=== PATIENT | male | born 1965 | race Caucasian/White ===

== ENCOUNTER 2021-11-29 19:58 | Emergency (ER) | payer OTHER, SELFPAY ==
[2021-11-29 19:59] VITALS: BP 131/73; PULSE 73; RESP 16; TEMP 36.6; O2SAT 96; BMI 22.3
--- NOTE | 2021-11-29 20:16 | EKG12_ITS ---
Test Reason : BACK PAIN Blood Pressure : / mmHG Vent. Rate : 071 BPM Atrial Rate : 071 BPM P-R Int : 158 ms QRS Dur : 082 ms QT Int : 410 ms P-R-T Axes : 070 032 058 degrees QTc Int : 445 ms Normal sinus rhythm Normal ECG Confirmed by CHARU DODD, SOTO ([id number]), editorial specialist [facility] ([id number]) on 12/02/2021 12:52:39 PM Referred By: BUNNY Confirmed By:SOTO BOX MD
--- NOTE | 2021-11-29 20:18 | CT_ITS ---
STUDY: CT ABDOMEN AND PELVIS WITHOUT CONTRAST REASON FOR EXAM: Male, 56 years old. Low back pain, syncope RADIATION DOSAGE (If Supplied By Facility): CTDIvol = ( 6.25 ) mGy, DLP = ( 301.41 ) mGycm TECHNIQUE: Transaxial images were obtained from the dome of the diaphragm to the symphysis pubis without oral contrast, and without intravenous contrast. Sagittal and coronal images were reconstructed. Individualized dose optimization techniques were used for this CT. COMPARISON: None. FINDINGS: The visualized lung bases are unremarkable. The visualized portions of the heart are within normal limits. Normal liver. Normal gallbladder and extrahepatic biliary system. Normal spleen. Normal pancreas. Normal bilateral adrenal glands. Normal right kidney. Normal left kidney. Normal visualized stomach. Normal small intestine. Normal colon. The appendix is visualized and appears normal. Appendix seen on coronal recon images 58-65 There is diffuse atherosclerotic calcification of the abdominal aorta, without a demonstrated aneurysm. Normal inferior vena cava. Normal retroperitoneum. Normal urinary bladder. There are prostatic calcifications. Normal abdominal wall. There are mild degenerative changes of the visualized lumbar spine, and pelvis. CT/Abdomen/Pelvis without Cont IMPRESSION: No suspicious solid organ abnormality No free intraperitoneal fluid, air, or suspicious adenopathy Normal appendix visualized Mild degenerative bony changes, most pronounced at L4-5 Electronically Signed: Michi Mcgovern MD at 21:17 EST ,
--- NOTE | 2021-11-29 20:20 | EX.ED.DYSGE1 ---
HPI History of Present Illness Chief Complaint: Back Detail of Chief Complaint: Syncope Informant: patient and spouse/S.O. Narrative Narrative: Patient presents via EMS after syncopal episode. Patient states he remembers having increased back pain the last several days although he has been having back pain for approximately 10 years. He took ibuprofen at dinner around 5 PM. He took a nap on the couch. When he got up he went to the restroom and then went to the kitchen to get something to drink. Significant other states she heard a thud in the kitchen and when she went in he had passed out on the floor. She believes he was out for approximately 45 seconds to 1 minute. She then helped him to a chair where he had a second unresponsive episode. He did vomit and become sweaty after this. At that point she called EMS. Patient denies chest pain or palpitations. PFSH PFSH Medical History no medical history no medical history Home Medications lidocaine [Lidoderm] 1 patch TOPICAL DAILY #8 ea 11/29/21 [Rx Last Taken Unknown] Allergy/AdvReac Type Severity Reaction Status Date / Time No Known Allergies Allergy Verified 11/29/21 20:00 Surgical History no surgical history Social History Smoking Status: Current every day smoker tobacco type: cigarettes ROS ROS ED Constitutional Constitutional ED: Denies chills or fever(s) Eyes Eyes: Denies change in vision ENT ENT ED: Denies sore throat Cardiovascular Cardiovascular: Denies chest pain or palpitations Respiratory/Chest Respiratory/Chest: Denies cough or dyspnea Gastrointestinal Gastrointestinal: Denies abdominal pain, diarrhea, nausea or vomiting Musculoskeletal Musculoskeletal: Reports back pain Integumentary Denies rash Neurologic Neurologic: Denies headache(s), paresthesias or weakness Allergic/Immunologic Allergic/Immunologic ED: Denies urticaria EXAM Physical Exam Const Vital Signs: 11/29/21 19:59 11/29/21 22:07 Temperature 97.8 F Temperature Source Oral Pulse Rate 73 62 Respiratory Rate 16 20 H Blood Pressure 131/73 H 140/91 H Blood Pressure Mean 92 107 Pulse Ox 96 99 Oxygen Delivery Method Room Air Room Air Positive well nourished and well developed General Appearance ED: well developed HEENT Reports moist mucous membranes Eyes PERRL and EOMs intact bilaterally Neck no lymphadenopathy and supple Chest Wall inspection of chest normal and palpation of chest normal Resp normal respiratory effort and clear to auscultation bilaterally Cardio regular rate and regular rhythm GI normal to inspection, nondistended, normoactive bowel sounds and non-tender Palpation: soft Back/Spine Back/Spine Narrative: No reproducible back tenderness. No erythema or overlying skin change. Extremity normal to inspection Neuro oriented x3 and no sensory deficits noted Sensorium / Orientation: alert Motor Exam: strength 5/5 throughout Psych mental status grossly normal Skin no rashes or lesions noted MDM MDM MDM Narrative Medical decision making narrative: Patient declines anything for pain. Patient placed on graphics software engineer. EKG, chest x-ray, lab work obtained. CT scan of the abdomen pelvis obtained so I can evaluate both spine as well as aorta. Lab Data Attestation: I reviewed the patient's lab results. Labs: Laboratory Results - last 24 hr 11/29/21 11/29/21 20:35 20:35 WBC 7.1 RBC 4.35 L Hgb 13.9 Hct 41.5 MCV 95.4 H MCH 32.0 MCHC 33.5 RDW Std Deviation 45.6 H RDW Coeff of Michael 13.0 Plt Count 256 MPV 8.8 Immature Gran % (Auto) 0.300 Neut % (Auto) 52.1 Lymph % (Auto) 37.3 Camp % (Auto) 5.4 Eos % (Auto) 4.3 Baso % (Auto) 0.6 Absolute Neuts (auto) 3.7 Absolute Lymphs (auto) 2.63 Nucleated RBC % 0 Sodium 144 Potassium 3.5 Chloride 111 H Carbon Dioxide 27.0 Anion Gap 6 BUN 17 Creatinine 1.00 Estim Creat Clear Calc 85.83 Est GFR (MDRD) Af Amer 100 Est GFR (MDRD) Non-Af 82 BUN/Creatinine Ratio 17.0 Glucose 94 Calcium 8.6 Troponin I High Sens 5 Radiography Diagnostic Testing: Clinical Impression(s) from Imaging Studies Abdomen/Pelvis CT 11/29/21 20:18 IMPRESSION: No suspicious solid organ abnormality No free intraperitoneal fluid, air, or suspicious adenopathy Normal appendix visualized Mild degenerative bony changes, most pronounced at L4-5 Electronically Signed: Michi Mcgovern MD at 21:17 EST Reading Location ID and State: [facility] / [place] , Service support , Chest X-Ray 11/29/21 20:52 IMPRESSION: No radiographic evidence of acute cardiopulmonary disease. Electronically Signed: Madi Guzman MD at 21:45 EST , EKG Initial EKG: Attestation: I personally reviewed and interpreted this EKG as follows: Interpretation: Sinus Rhythm (Sinus at 71 with no acute ischemia.) Treatment and Re-Evaluation Comments:: On repeat evaluation patient resting comfortably. Test results discussed with him. We discussed possible observation overnight for monitoring of cardiac rhythm. He would prefer to go home. My suspicion is that he had a vasovagal syncope secondary to back pain. He is willing to take a Lidoderm patch for his back but does not want any oral medication. He will be referred to Dr. Harding, next on the no doc list. Discharge Plan Triage Chief Complaint: Back ED Provider: Veronica Moyer Dx/Rx/DC Orders Clinical Impression: Back pain, Vasovagal syncope Instructions: ED Back Pain (Acute or Chronic), ED Fainting, Vagal Reaction Prescriptions: New lidocaine [Lidoderm] 5 % adhesive patch,medicated 1 patch topical DAILY Qty: 8 RF: 0 Primary Care Provider: Care Physician,No Primary Referrals: Cheryle Harding MD [STAFF PHYSICIAN] - As soon as possible Care Physician,No Primary [Primary Care Provider] - Disposition Disposition: Home, Self Care
[2021-11-29] MEDS: 0.9% Normal Saline 1,000 ML 150 ML IV (20:38)
[2021-11-29 20:46] LABS: Absolute Lymphocyte Count 2.63 X10^3/uL (0.83-4.51); Absolute Neutrophil Count 3.7 X10^3/uL (2.0-7.7); Basophil# 0.04 X10^3/uL; Basophil% 0.6 % (0-1); Eosinophils% 4.3 % (0-5); Hematocrit 41.5 % (40-54); Hemoglobin 13.9 g/dL (13.0-16.5); Lymphocyte # 2.63 X10^3/ul (0.83-4.51); Lymphocyte % 37.3 % (19-41); Mean Corp Hgb Conc 33.5 g/dL (32-36); Mean Corpuscular Volume 95.4 fL (80-94); Mean Platelet Vol. 8.8 fl (6.2-12.0); Monocyte# 0.38 X10^3/uL; Monocyte% 5.4 % (0-10); NRBC Flagged by Analyzer 0 % (0-5); Neutrophil # 3.68 X10^3/uL (2.7-7.7); Neutrophil % 52.1 % (47-70); Platelet Count 256 K/mm3 (150-450); RBC Distribution Width SD 45.6 fl (35.1-43.9); Red Blood Count 4.35 M/mm3 (4.6-6.2); White Blood Count 7.1 K/mm3 (4.4-11.0)
--- NOTE | 2021-11-29 20:52 | RAD_ITS ---
EXAM: XR CHEST, 1 VIEW CLINICAL INDICATION: syncope TECHNIQUE: Frontal view of the chest. This report was created using [employer] report generation technology. COMPARISON: None. FINDINGS: LUNGS AND PLEURAL SPACES: Unremarkable. No consolidation or edema. No pneumothorax. No effusion. HEART: Unremarkable. Cardiac silhouette not enlarged. MEDIASTINUM: Central airways and mediastinal contour are unremarkable. BONES/JOINTS: No suspicious lytic or sclerotic lesions of bone. SOFT TISSUES: Unremarkable. RAD/Chest 1 View (Portable) IMPRESSION: No radiographic evidence of acute cardiopulmonary disease. Electronically Signed: Madi Guzman MD at 21:45 EST ,
[2021-11-29 21:18] LABS: Anion Gap 6 (5-15); BUN 17 mg/dL (7-18); Calcium,Total 8.6 mg/dL (8.5-10.1); Chloride 111 mmol/L (98-107); EST Glomerular Filtration Rate 82 mL/min (>60); Est Glom Filt Rate - Afr Amer 100 mL/min (>60); Estimated Creatinine Clearance 85.83 ml/min; Glucose 94 mg/dL (74-106); Potassium 3.5 mmol/L (3.5-5.1); Sodium Level 144 mmol/L (136-145); Troponin-I HS 5 pg/mL (3.0-78.0)
[2021-11-29 22:07] VITALS: BP 140/91; PULSE 62; RESP 20; O2SAT 99
[2021-11-29 22:46] VITALS: BP 140/91; PULSE 60; RESP 12; O2SAT 98
[2021-11-29] MEDS: Lidocaine 5% Patch 1 PATCH TOPICAL (22:53)
== END 2021-11-29 23:00 | disposition home or self-care (01) ==
PROVIDERS: Emergency Provider Emergency Medicine; Visit Provider Emergency Medicine
DX: M54.9 Dorsalgia, unspecified (principal); R55 Syncope and collapse; R11.10 Vomiting, unspecified; F17.210 Nicotine dependence, cigarettes, uncomplicated
CPT/HCPCS: 71045; 74176; 80048; 84484; 85025; 93005; 99284; J7030; A4216

== ENCOUNTER → 2025-04-19 | Outpatient (CLI) | payer OTHER, SELFPAY ==
--- NOTE | 2025-04-19 13:58 | CT_ITS ---
PROCEDURE: LOW DOSE CT LUNG SCREENING 04/19/2025 REASON FOR EXAM: H OF SMOKING 1 pack per day for 40 years. TECHNIQUE: LOW DOSE CT LUNG SCREENING Coronal and Sagittal reconstruction series were provided. One or more dose reduction techniques were used (e.g., Automated exposure control, adjustment of the mA and/or kV according to patient size, use of iterative reconstruction technique). REFERENCE LINK: [email or web address] Lung-RADS RADIATION DOSE SUMMARY: CTDlvol: 1.59 mGy DLP: 57.78 mGycm COMPARISON: Prior chest radiograph dated November 29, 2021. FINDINGS: PULMONARY NODULES: (Only nodules >3mm are reported) Nodules described below are on series 1 unless otherwise specified. Pulmonary Nodules: None Hardware:None Lymph Nodes:None Heart and Vasculature:The heart is nonenlarged. No evidence of pericardial effusion.. The ascending aorta measures upper limits of normal. Coronary Artery Calcifications: Present Lungs and Airways: Mild emphysematous changes are present. Tiny calcific granuloma in the right midlung. Pleura:No pleural effusion. Upper Abdomen:Unremarkable Bones:Unremarkable CT/Low Dose CT Lung Screening IMPRESSION: Mild emphysematous changes. Coronary artery calcification (CAC) is is present Lung-RADS Category: 2 BENIGN (BASED ON IMAGING FEATURES OR INDOLENT BEHAVIOR). RECOMMEND 12-MONTH SCREENING LDCT. Other Significant Findings: Reading Location: [place] [id number]
--- OUTSIDE RECORDS SUMMARY | 2025-04-19 17:42 | XMS RPT_ITS | CCD ---
Author Organization [facility] Care Team Providers Care Transport Engineer Name Role Phone FLORENCIA EDUARDO Unavailable Unavailable Unavailable Primary Care Provider Unavailabl e OHSIE-BAJOR, MASHA H Admitting Unavailable OHSIE-BAJOR, MASHA H Attending Unavailable OHSIE-BAJOR, MASHA H Admitting Unavailable OHSIE-BAJOR, MASHA H Attending Unavailable OHSIE-BAJOR, MASHA H Referring Unavailable OHSIE-BAJOR, MASHA H Attending Unavailable OHSIE-BAJOR, MASHA H Referring Unavailable OHSIE-BAJOR, MASHA H Attending Unavailable OHSIE-BAJOR, MASHA H Attending Unavailable OHSIE-BAJOR, MASHA H Attending Unavailable OHSIE-BAJOR, MASHA H Attending Unavailable Magana Drew Referring Unavailable [place], Drew Attending Unavailable Care Physician, No Primary Primary Care Unava ilable Medications Current Medications Medication Drug Class(es) Dates Sig (Normalized) Sig (Original) 2 ml droperidol 2.5 mg/ml injection (1 source) Dopamine-2 Receptor Antagonist Start: 08-28-2024 0.625 mg, intravenous, Once as needed, nausea/vomiting, second line, Starting on Tue08/28/24 at 1414, For 1 dose, Recovery (only), Monitor QTc while on therapy (2 lead monitoring) 1 ml fentaNYL 0.05 mg/ml injection (3 sources) Opioid Agonist Start: 08-28-2024 50 mcg, intravenous, Every 5 min PRN, pain severe (7-10), first line, Starting on Tue08/28/24 at 1414, Recovery (only), Max total of 200 micrograms regardless of dose., If ordered PRN for pain, nurse is permitted to administer this medication for higher pain scores based on patient preference? Yes Start: 08-28-2024 25 mcg, intrav enous, Every 5 min PRN, pain moderate (4-6), first line, Starting on Tue08/28/24 at 1414, Recovery (only), Max total of 200 micrograms regardless of dose., If ordered PRN for pain, nurse is permitted to administer this medication for higher pain scores based on patient preference? Yes Start: 08-28-2024 12.5 mcg, intr avenous, Every 5 min PRN, pain mild (1-3), first line, Starting on Tue08/28/24 at 1414, Recovery (only), Max total of 200 micrograms regardless of dose., If ordered PRN for pain, nurse is permitted to administer this medication for higher pain scores based on patient preference? Yes ketorolac tromethamine 5 mg/ml ophthalmic solution (2 sources) Nonsteroidal Anti-inflammatory Drug, Cyclooxygenase Inhibitor Start: 08-10-2024 take 1 drop(s) into the eye(s) four times daily ketorolac (Acular) 0.5 % ophthalmic solution Indications: post-op ocular inflammation 1 drop to surgical eye 4 times a day starting 1 day before surgery 5 mL 2 08/10/2024 Active ofloxacin 3 mg/ml ophthalmic solution (2 sources) Quinolone Antimicrobial Start: 08-10-2024 take 1 drop(s) into the eye(s) four times daily ofloxacin (Ocuflox) 0.3 % ophthalmic solution Indications: Cataract surgery 1 drop to operative eye 4 times a day starting 1 day before surgery 5 mL 2 08/10/2024 Active 2 ml ondansetron 2 mg/ml injection (1 source) Serotonin-3 Receptor Antagonist Start: 08-28-2024 4 mg, intravenous, Once as needed, nausea/vomiting, first line, Starting on Tue08/28/24 at 1414, For 1 dose, Recovery (only), When administering via IV Push, administer over 3-5 minutes. oxygen (O2) therapy (1 source) Start: 08-28-2024 inhalation, Continuous PRN - O2/gases, other, Starting on Tue08/28/24 at 1414, Recovery (only), Device: Nasal Cannula, Rate in liters per minute: Other, Custom Value: 1-6 LPM, Keep O2 Sat Above: 92% prednisoLONE acetate 10 mg/ml ophthalmic suspension (2 sources) Corticosteroid Start: 08-10-2024 take 1 drop(s) into the eye(s) four times daily prednisoLONE acetate (Pred-Forte) 1 % ophthalmic suspension Indications: post operative inflammation 1 drop to operative eye 4 times a day starting the day of surgery (after surgery is done) 5 mL 2 08/10/2024 Active Completed/Discontinued Medications Medication Drug Class(es) Dates Sig (Normalized) Sig (Original) cyclopentolate hydrochloride 10 mg/ml ophthalmic solution (2 sources) Start: 09-25-2024 End: 09-25-2024 1 drop, Right Eye, Every 5 min, First dose on Tue09/25/24 at 1030, For 3 doses, Preprocedure, 1 drop to operative eye every 5-10 minutes for 3 doses, Indications: cycloplegia, mydriasis Start: 08-28-2024 End: 08-28-2024 1 drop, Left Eye, Every 5 mi n, First dose on Tue08/28/24 at 1300, For 3 doses, Preprocedure, 1 drop to operative eye every 5-10 minutes for 3 doses, Indications: cycloplegia, mydriasis phenylephrine hydrochloride 100 mg/ml ophthalmic solution (2 sources) alpha-1 Adrenergic Agonist Start: 09-25-2024 End: 09-25-2024 1 drop, Right Eye, Every 5 min, First dose on Tue09/25/24 at 1030, For 3 doses, Preprocedure, 1 drop to operative eye every 5-10 minutes for 3 doses, Indications: mydriasis Start: 08-28-2024 End: 08-28-2024 1 drop, Left Eye, Every 5 mi n, First dose on Tue08/28/24 at 1300, For 3 doses, Preprocedure, 1 drop to operative eye every 5-10 minutes for 3 doses, Indications: mydriasis tetracaine hydrochloride 5 mg/ml ophthalmic solution (2 sources) Fe Local Anesthetic Start: 09-25-2024 End: 09-25-2024 take 1 drop(s) into the eye(s) once 1 drop, Right Eye, Once, On Tue09/25/24 at 1030, For 1 dose, Preprocedure Start: 08-28-2024 End: 08-28-2024 take 1 drop(s) into the eye(s) once 1 drop, Left Eye, Once, On Tue08/28/24 at 1300, For 1 dose, Preprocedure Problems Active Problems Problem Classification Problem Date Documented Da te Episodic/Chronic Cataract (20 sources) Senile combined form cataract of right eye; Translations: [Combined forms of age-related cataract, right eye] Onset: 07-30-2024 08-28-2024 Chronic Other nervous system disorders (2 sources) H/O: retinal detachment; Translations: [Personal history of other diseases of the nervous system and sense organs] Onset: 07-30-2024 07-30-2024 Episodic Retinal detachments; defects; vascular occlusion; and retinopathy (4 sources) Epiretinal membrane of left eye; Translations: [Puckering of macula, left eye] Onset: 07-30-2024 07-30-2024 Chronic Screening and history of mental health and substance abuse codes (1 source) Personal history of nicotine dependence; Translations: [Personal history of nicotine dependence] Onset: 04-02-2025 Episodic Past or Other Problems Problem Classification Problem Date Documented Da te Episodic/Chronic Abdominal pain (1 source) Epigastric pain; Translations: [Epigastric pain] Onset: 11-23-2017 Episodic Blindness and vision defects (12 sources) Bilateral myopia of eyes; Translations: [Myopia, bilateral] Onset: 07-30-2024 07-30-2024 Episodic Other nervous system disorders (2 sources) Personal history of other diseases of the nervous system and sense organs; Translations: [Personal history of other diseases of the nervous system and sense organs] Onset: 07-30-2024 Episodic Results Test Name Value Interpretation Reference Range Facility 2019 CORONAVIRUSon 0 2019 CORONAVIRUS COVID 19 SOURCE BOAT MOTOR MECHANIC: UPPER RESPIRATORY TRACT SWAB COVID 19 RESULT BOAT MOTOR MECHANIC: Negative for COVID19 (SARS CoV2) by PCR. This test was developed and its performance characteristics determined by [facility] [place]. This test has been authorized by FDA under an Emergency Use Authorization (EUA). This test has been validated in accordance with the FDA's Guidance Document Policy for Diagnostics Testing in Laboratories Certified to Perform High Complexity Testing under CLIA prior to Emergency use Authorization for Coronavirus Disease 2019 during the Public Health Emergency issued on December 08, 2019. Normal [facility] Comment on above: Performed By: #### C OVID #### [facility] [id number] [address] [place] [address] ED NOTEon 09-16-2020 ED NOTE HNO ID: [id number] Author: Anju Vincent) NACHO Byers Service: Emergency Medicine Author Type: Registered Nurse Type: ED Notes Filed: 09/16/2020 5:21 PM Note Text: Patient alert and oriented, denies any questions/concerns at this time. Patient verbalizes understanding of d/c instructions, medications and follow up care. Patient ambulates from department at this time. Normal [facility] ED NOTE HNO ID: [id number] Author: Anju ClayRn) Modesta RN Service: Emergency Medicine Author Type: Registered Nurse Type: ED Notes Filed: 09/16/2020 5:20 PM Note Text: Patient informed: the name of medication, why we are giving it, possible side effects, what they may expect to feel, and was offered a chance to ask questions, prior to the administration of Zofran Normal [facility] ED NOTE HNO ID: [id number] Author: Anju Byers RN Service: Emergency Medicine Author Type: Registered Nurse Type: ED Notes Filed: 09/16/2020 4:27 PM Note Text: Patient to ED requesting COVID testing states he was exposed on 09/06. Past 4 days c/o n/v diarrhea and headache. Patient alert and oriented ambulates to room 10 Normal [facility] ED PROV NOTEon 09-16-2020 ED PROV NOTE HNO ID: [id number] Author: Veronica Doe MD Service: Emergency Medicine Author Type: Physician Type: ED Provider Notes Filed: 09/16/2020 5:43 PM Note Text: ED Provider Note Patient Name: Diego Alarcon SERVICE DATE: 09/16/20 History Patient presents with: Covid19 Concern: pt reports exposed on 09/06 Diarrhea Nausea AND Vomiting Headache The patient is a 55-year-old male presenting today with complaint of concern for COVID-19. Patient states that he was exposed to COVID-19 virus at a [employer] family on 06 September. He states that multiple children at that [employer] tested positive for Covid although is unsure when each of the positive test came back. He is not sure of their symptoms. He states the last 4 days he has had myalgias, nausea, vomiting, diarrhea, and cold chills. He denies any fevers. He states he is had about 8 episodes a day of the diarrhea and about 3 episodes total of nausea and vomiting over the last 24 hours. He states he is actually not vomited at all since he woke up this morning but has had nausea after attempting to drink water, Powerade, and having a muffin. He denies any food that may have been suspect that he could have eaten. He lives with his girlfriend who is asymptomatic at this time. He denies rhinorrhea nasal congestion or cough. He does complain of some sore throat with swallowing. He states that his cigarettes taste funny but has not lost his sense of taste or smell. PAST MEDICAL HISTORY Diagnosis Date - Gastric ulcer - Pneumonia PAST SURGICAL HISTORY Procedure Laterality Date - ORTHOPEDICS SURGERY HX No family history on file. Social History Tobacco Use - Smoking status: Current Every Day Smoker Packs/day: 0.50 Types: Cigarettes - Smokeless tobacco: Never Used Substance and Sexual Activity - Alcohol use: Yes Comment: a couple days week - Drug use: No - Sexual activity: Not on file ALLERGIES No Known Allergies Review of Systems Constitutional: Negative for activity change, appetite change, chills, fatigue and fever. HENT: Negative for congestion, ear pain, rhinorrhea and sore throat. Respiratory: Negative for cough and shortness of breath. Cardiovascular: Negative for chest pain and palpitations. Gastrointestinal: Positive for diarrhea, nausea and vomiting. Negative for abdominal pain. Genitourinary: Negative for dysuria, frequency and urgency. Musculoskeletal: Positive for myalgias. Negative for arthralgias. Skin: Negative for rash and wound. Neurological: Negative for dizziness and headaches. Psychiatric/Behavioral: Negative for self-injury and suicidal ideas. All other systems reviewed and are negative. Physical Exam BP 154/101 Pulse 100 Temp (Src) 97.8 (Temporal) Resp 16 Ht 5' 10.5 (1.79m) Wt 156 lb (70.8kg) SpO2 97% BMI 22.06 kg/(m2). O2 Therapy: Room Air Physical Exam Vitals and nursing note reviewed. Constitutional: General: He is not in acute distress. Appearance: He is well-developed. He is not ill-appearing. HENT: Head: Normocephalic and atraumatic. Nose: Nose normal. Mouth/Throat: Mouth: Mucous membranes are moist. Pharynx: Oropharynx is clear. Eyes: Extraocular Movements: Extraocular movements intact. Pupils: Pupils are equal, round, and reactive to light. Cardiovascular: Rate and Rhythm: Normal rate and regular rhythm. Heart sounds: Normal heart sounds. No murmur. No friction rub. No gallop. Pulmonary: Effort: Pulmonary effort is normal. No respiratory distress. Breath sounds: Normal breath sounds. No stridor. No wheezing, rhonchi or rales. Abdominal: General: Abdomen is flat. Bowel sounds are normal. There is no distension. Palpations: Abdomen is soft. Tenderness: There is no abdominal tenderness. Hernia: No hernia is present. Musculoskeletal: General: Normal range of motion. Cervical back: Normal range of motion and neck supple. Right lower leg: No edema. Left lower leg: No edema. Skin: General: Skin is warm and dry. Capillary Refill: Capillary refill takes less than 2 seconds. Neurological: General: No focal deficit present. Mental Status: He is alert and oriented to person, place, and time. GCS: GCS eye subscore is 4. GCS verbal subscore is 5. GCS motor subscore is 6. Psychiatric: Mood and Affect: Mood normal. Behavior: Behavior normal. Diagnostic Testing ED Labs Ordered and Reviewed - No data to display Procedures ED Course / Clinical Impression Clinical Impressions as of Sep 16 1730 Nausea vomiting and diarrhea COVID-19 test performed per [facility] policy for suspected COVID community exposure. MDM / Disposition / Plan The patient was seen and examined. History and physical were obtained. Based on history and physical, Covid test was obtained. For the nausea patient received Zofran. He was advised that his Covid test would take several days to come back and that until he gets the results he would need to stay quarantined. He was advised that if it is positive he will need to stay quarantine for 10 days and that the health department will contact him via letter for further instructions. He can return ED for any new or worsening concerns including worsening shortness of breath. Patient voiced understanding was agreeable to discharge. Disposition The patient was discharged. Counseled patient regarding suspected diagnosis. As well as the need for follow-up. Discharged home with verbal and written instructions. They were instructed to return as needed for persistent or worsening symptoms or any new concerns. Condition at disposition is stable. SIGNATURE: MD Veronica Montano MD 09/16/20 1743 Normal [facility] Amylaseon 11-23-2017 Amylase 48 U/L Normal 30-104 [facility] Comment on above: Performed By: #### A MYL, CMP, LIPA, CBCDIF ####[facility] [address] [place] [address] CBC and Differentialon 11-23 Abs Baso 0.03 k/uL Normal <0.11 [facility] Comment on above: Performed By: #### A MYL, CMP, LIPA, CBCDIF ####[place] [address] Abs [place] 0.65 k/uL Normal <0.87 [facility] Comment on above: Performed By: #### A MYL, CMP, LIPA, CBCDIF ####[place] [address] Abs Neut 4.93 k/uL Normal 1.45-7.50 [facility] Comment on above: Performed By: #### A MYL, CMP, LIPA, CBCDIF ####[place] [address] Basophils/100 WBC Auto (Bld) 0.4 % Normal [facility] Comment on above: Performed By: #### A MYL, CMP, LIPA, CBCDIF ####[place] [address] Eosinophils 0.13 10*3/uL Normal <0.46 [facility] Comment on above: Performed By: #### A MYL, CMP, LIPA, CBCDIF ####[place] [address] Eosinophils/100 leukocytes 1.7 % Normal [facility] Comment on above: Performed By: #### A MYL, CMP, LIPA, CBCDIF ####[place] [address] Erythrocyte distribution width Auto Ratio (RBC) 13.0 % Normal 11.5-15.0 [facility] Comment on above: Performed By: #### A MYL, CMP, LIPA, CBCDIF ####[place] [address] Erythrocytes (RBC) 4.50 10*6/uL Normal 4.20-6.00 [facility] Comment on above: Performed By: #### A MYL, CMP, LIPA, CBCDIF ####[place] [address] Hematocrit (HCT) 41.7 % Normal 39.0-51.0 [facility] Comment on above: Performed By: #### A MYL, CMP, LIPA, CBCDIF ####[place] [address] Hemoglobin mass conc (Bld) 14.0 g/dL Normal 13.0-17.0 [facility] Comment on above: Performed By: #### A MYL, CMP, LIPA, CBCDIF ####[place] [address] Lymphocytes 2.11 10*3/uL Normal 1.00-4.00 [facility] Comment on above: Performed By: #### A MYL, CMP, LIPA, CBCDIF ####[place] [address] Lymphocytes/100 leukocytes 26.9 % Normal [facility] Comment on above: Performed By: #### A MYL, CMP, LIPA, CBCDIF ####[place] [address] MCH 31.1 pG Normal 26.0-34.0 [facility] Comment on above: Performed By: #### A MYL, CMP, LIPA, CBCDIF ####[place] [address] MCHC mass conc (RBC) 33.6 g/dL Normal 30.5-36.0 [facility] Comment on above: Performed By: #### A MYL, CMP, LIPA, CBCDIF ####[facility] [address] [place] [address] MCV 92.7 fL Normal 80.0-100.0 [facility] Comment on above: Performed By: #### A MYL, CMP, LIPA, CBCDIF ####[facility] [address] [place] [address] Monocytes/100 leukocytes 8.3 % Normal [facility] Comment on above: Performed By: #### A MYL, CMP, LIPA, CBCDIF ####[facility] [address] [place] [address] Neutrophils/100 WBC Auto (Bld) 62.7 % Normal [facility] Comment on above: Performed By: #### A MYL, CMP, LIPA, CBCDIF ####[facility] [address] [place] [address] Platelet mean volume (PMV) 9.3 fL Normal 9.0-12.7 [facility] Comment on above: Performed By: #### A MYL, CMP, LIPA, CBCDIF ####[facility] [address] [place] [address] Platelets 267 10*3/uL Normal 150-400 [facility] Comment on above: Performed By: #### A MYL, CMP, LIPA, CBCDIF ####[facility] [address] [place] [address] WBC (Leukocytes) 7.85 10*3/uL Normal 3.70-11.00 [facility] Comment on above: Performed By: #### A MYL, CMP, LIPA, CBCDIF ####[facility] [address] [place] [address] CT ABD/PEL W IVCONon 018 CT ABD/PEL W IVCON * * *Final Report* * *DATE OF EXAM: Nov 23 2017 11:31AM [facility] [id number] - CT ABD/PEL W IVCON / REASON: Epigastric pain * * * * Physician Interpretation * * * * EXAMINATION: CT ABDOMEN AND PELVIS WITH IV CONTRASTCLINICAL HISTORY: Epigastric painWait for perforated peptic ulcer, biliary disease or pancreatitisEPIGASTRIC PAINTECHNIQUE: CT of the abdomen and pelvis was performed using standard technique, scanning from just above the dome of the diaphragm to the symphysis pubis.M: CTAP_3Contrast:IV: 150 ml of Omnipaque 300Oral: 900 ml of 50ML Omnipaque 240 W 850ML WaterCT Radiation dose: Integrated Dose-length product (DLP) for this visit = 435 mGy*cm.CT Dose Reduction Employed: Automated exposure control (AEC)COMPARISON: None.RESULT:Liver: No mass.Biliary: No bile duct dilation. Gallbladder is unremarkable.Spleen: No mass. No splenomegaly.Pancreas: No mass or duct dilation.Adrenals: No mass.Kidneys: No mass, calculus or hydronephrosis.GI tract: Some thickening of the wall in the antral region of the stomach. No inflammatory changes or fluid collections in the area of the stomach or proximal duodenum. The appendix image 102 is visualized and is unremarkable.Lymph nodes: Multiple subcentimeter lymph nodes in the area of the celiac axisMesentery/Peritoneum: No ascites or mass.Retroperitoneum: No mass.Vasculature: The celiac axis and SMA are patent. The portal vein and branches, splenic vein, SMV, and hepatic veins are patent. No abdominal aortic or iliac artery aneurysm.Pelvis: No mass, ascites or fluid collection.Bones/Soft Tissues: No significant finding.Lower thorax: Small amount of dependent atelectasis posteriorly medially bilaterally.IMPRESSION:1. There appears to be some thickening of the wall of the antral region of the stomach. No evidence of fluid collections or inflammatory changes in the surrounding tissues2. Multiple subcentimeter lymph nodes near the celiac axis. This is a nonspecific finding. Transcri ptionist: DANYELLE Transcribe Date/Time: Nov 23 2017 12:17PDictated by : Carie LAWS examination was interpreted and the report reviewed and electronically signed by: AYDIN CARRILLO DO on Nov 23 2017 12:26PM [id number] Normal [facility] Comp Metabolic Panelon 11-23 Alanine aminotransferase (ALT) 10 U/L Normal 10-54 [facility] Comment on above: Performed By: #### A MYL, CMP, LIPA, CBCDIF ####[facility] [address] [place] [id number] Albumin 4.1 g/dL Normal 3.9-4.9 [facility] Comment on above: Performed By: #### A MYL, CMP, LIPA, CBCDIF ####[facility] [address] [place] [address] Alkaline phosphatase (ALP) 95 U/L Normal 36-108 [facility] Comment on above: Performed By: #### A MYL, CMP, LIPA, CBCDIF ####[facility] [address] [place] [address] Anion gap 11 mmol/L Normal 9-18 [facility] Comment on above: Performed By: #### A MYL, CMP, LIPA, CBCDIF ####[facility] [address] [place] [address] Aspartate aminotransferase (AST) 19 U/L Normal 14-40 [facility] Comment on above: Performed By: #### A MYL, CMP, LIPA, CBCDIF ####[facility] [address] [place] [address] Bilirubin (total) 0.4 mg/dL Normal 0.2-1.3 [facility] Comment on above: Performed By: #### A MYL, CMP, LIPA, CBCDIF ####[facility] [address] [place] [address] Calcium 10.6 mg/dL High 8.5-10.2 [facility] Comment on above: Performed By: #### A MYL, CMP, LIPA, CBCDIF ####[facility] [address] [place] [address] Chloride 100 mmol/L Normal 97-105 [facility] Comment on above: Performed By: #### A MYL, CMP, LIPA, CBCDIF ####[facility] [address] [place] [address] CO2 33 mmol/L High 22-30 [facility] Comment on above: Performed By: #### A MYL, CMP, LIPA, CBCDIF ####[facility] [address] [place] [address] Creatinine 0.97 mg/dL Normal 0.73-1.22 [facility] Comment on above: Performed By: #### A MYL, CMP, LIPA, CBCDIF ####[facility] [phone] eGFR (non-black) mL/min/{1.73_m2} Normal [facility] Comment on above: Result Comment: eGFR (Estimated GFR) Units of measure: mL/min/1.73 meters squaredeGFR is derived from the reexpressed MDRD Study equation using the following parameters: serum creatinine, age, gender and race. The creatinine assay has been calibrated to be traceable to IDMS.An eGFR <60 mL/min/1.73m2 for >3 months is consistent with chronic kidney disease. Refer to KDOQI guidelines for clinical interpretation.In patients with unstable renal function, e.g. those with acute kidney injury, the eGFR may not accurately reflect actual GFR. Performed By: #### A MYL, CMP, LIPA, CBCDIF ####[facility] [address] [place] [id number] Glucose mass conc 105 mg/dL High 74-99 [facility] Comment on above: Result Comment: The [place] [employer] (ADA) provides guidance for cutoff values for fasting glucose and random glucose. The ADA defines fasting as no caloric intake for at least 8 hours. Fasting plasma glucose results between 100 to 125 mg/dL indicate increased risk for diabetes (prediabetes).Fasting plasma glucose results greater than or equal to 126 mg/dL meet the criteria for diagnosis of diabetes. In the absence of unequivocal hyperglycemia, results should be confirmed by repeat testing. In a patient with classic symptoms of hyperglycemia or hyperglycemic crisis, random plasma glucose results greater than or equal to 200 mg/dL meet the criteria for diagnosis of diabetes.Reference: Standards of Medical Care in Diabetes 2016, [place] [employer]. Diabetes Care. 2016.39(Suppl 1). Performed By: #### A MYL, CMP, LIPA, CBCDIF ####[facility] [address] [place] [phone] Potassium molar conc 3.7 mmol/L Normal 3.7-5.1 [facility] Comment on above: Performed By: #### A MYL, CMP, LIPA, CBCDIF ####[facility] [address] [place] [phone] Protein 7.2 g/dL Normal 6.3-8.0 [facility] Comment on above: Performed By: #### A MYL, CMP, LIPA, CBCDIF ####[facility] [address] [place] [address] Sodium 144 mmol/L Normal 136-144 [facility] Comment on above: Performed By: #### A MYL, CMP, LIPA, CBCDIF ####[facility] [address]5160 Urea nitrogen 12 mg/dL Normal 9-24 [facility] Comment on above: Performed By: #### A MYL, CMP, LIPA, CBCDIF ####[facility] [address]160 ED NOTEon 11-23-2017 ED NOTE HNO ID: [id number] thor: Krystal Vincent) YUMI Issaervice: (none)Author Type: Registered NurseType: ED NotesFiled: 11/23/2017 1:26 PMNote Text: Patient in stable condition upon discharge. resp even and unlabored. Nodistress noted. Patient states he is feeling a little better. Dischargeand follow up reviewed, plan of care is agreed upon. Patient thankful forCare upon discharge. [facility] ED NOTE HNO ID: [id number] Author: Krystal Vincent) NACHO Issa Service: (none) Author Type: Registered Nurse Type: ED Notes Filed: 11/23/2017 10:59 AM Note Text: Patient states pain has decreased, patient resting on cot [facility] ED NOTE HNO ID: [id number] thor: Lia Vincent) YUMI Uribeervice: Emergency MedicineAuthor Type: Registered NurseType: ED NotesFiled: 11/23/2017 9:38 AMNote Text:Pt presents with abdominal pain that starts on the left side and wrapsaround to his back. Abd is tender to touch. Pt reports pain is constantand he takes a lot of ibprofen, which helps with the pain. Pain startedon and has worsened over time. Pt had n/v yesterday. [facility] ED PROV NOTEon 11-23-2017 ED PROV NOTE HNO ID: [id number] thor: Rosemary Noonanice: Emergency MedicineAuthor Type: PhysicianType: ED Provider NotesFiled: 11/23/2017 12:39 PMNote Text:ED Provider NotePatient Name: Diego AlarconMRN: [id number] DATE: 11/23/17HistoryPatient presents with:Abdominal Pain: left side of abd wraps around to backPatient is a 52 year old male presenting with abdominal pain.History provided by: PatientAbdominal PainPain location: GeneralizedPain quality: aching and burningAssociated symptoms: nausea and vomitingAssociated symptoms: no chest pain, no constipation, no cough, nodiarrhea, no dysuria, no hematuria, no shortness of breath and no nqfmfittmd20-vesk-mxn male patient presents to the emergency department withepigastric abdominal pain. It's been present since . Atleast 2 months he says. He drinks twice a week. He does utilize a lotibuprofen. He notes nausea and vomiting. Last episode yesterday. Nohematemesis or hematochezia. No hematuria. No bruising. The pain wrapsaround from the epigastrium to the back but his abdomen hurts everywherethis morning. When asked why he took so long to get this addressed hestates I was busy. No other complaints voiced by patient. No dysuria.No chest pain. No cough or hemoptysis. He cannot tell me if foodaggravates the pain or not.No past medical history on file.No past surgical history on file.No family history on file.Social HistorySocial History Main Topics- Smoking status: Not on file- Smokeless tobacco: Not on file- Alcohol use Not on file- Drug use: Not on file- Sexual activity: Not on fileALLERGIESNo Known AllergiesReview of SystemsConstitutional: Negative for activity change and appetite change.HENT: Negative for congestion, drooling, rhinorrhea, sore throat, troubleswallowing and voice change.Eyes: Negative for photophobia, pain and visual disturbance.Respiratory: Negative for cough, chest tightness and shortness of breath.Cardiovascular: Negative for chest pain and leg swelling.Gastrointestinal: Positive for abdominal pain, nausea and vomiting.Negative for blood in stool, constipation and diarrhea.Genitourinary: Negative for decreased urine volume, dysuria, flank pain,frequency, hematuria and urgency.Musculoskeletal: Positive for back pain. Negative for joint swelling andneck pain.Skin: Negative for rash.Neurological: Negative for dizziness, weakness, light-headedness andheadaches.Hematological : Negative for adenopathy.Psychiatric/Beh avioral: The patient is not nervous/anxious.Physical ExamBP 133/79 Pulse 101 Temp (Src) 98.2 (Oral) Resp 20 Wt 165 lb(74.8kg) SpO2 98%Physical ExamConstitutional: He is oriented to person, place, and time. He appearswell-developed and well-nourished. No distress.HENT:Head: Normocephalic.Nose: Nose normal.Mouth/Throat: Oropharynx is clear and moist.Eyes: Conjunctivae and EOM are normal. Pupils are equal, round, andreactive to light. Right eye exhibits no discharge. Left eye exhibits nodischarge. No scleral icterus.Neck: Normal range of motion. Neck supple. No tracheal deviation present.Cardiovascular: Normal rate, regular rhythm and normal heart sounds.No murmur heard.Pulmonary/Chest: Effort normal and breath sounds normal. No respiratorydistress. He has no wheezes. He exhibits no tenderness.Abdominal: Soft. Bowel sounds are normal. He exhibits no distension and nomass. There is generalized tenderness. There is rebound and guarding.Musculoskeletal: Normal range of motion. He exhibits no edema ortenderness.Lymphadenopat hy: He has no cervical adenopathy.Neurological: He is alert and oriented to person, place, and time. He hasnormal reflexes. No cranial nerve deficit.Skin: Skin is warm and dry. No rash noted.Psychiatric: He has a normal mood and affect.Nursing note and vitals reviewed.Diagnostic TestingED Labs Ordered and Reviewed - No data to displayProceduresMedical Decision Making / ED CourseED Nakoda34-hmxh-ftx male patient presents to ED as above. Patient ordered to haveIV fluid bolus, fentanyl and Zofran. CT the abdomen and pelvis ordered.Laboratory studies ordered.Workup:Results for orders placed or performed during the hospital encounter of11/23/17CBC + DIFFResult Value Ref Range WBC 7.85 3.70 - 11.00 k/uL RBC 4.50 4.20 - 6.00 m/uL Hemoglobin 14.0 13.0 - 17.0 g/dL Hematocrit 41.7 39.0 - 51.0 % MCV 92.7 80.0 - 100.0 fL MCH 31.1 26.0 - 34.0 pG MCHC 33.6 30.5 - 36.0 g/dL RDW-CV 13.0 11.5 - 15.0 % Platelet Count 267 150 - 400 k/uL MPV 9.3 9.0 - 12.7 fL Neut% 62.7 % Abs Neut (ANC) 4.93 1.45 - 7.50 k/uL Lymph% 26.9 % Abs Lymph 2.11 1.00 - 4.00 k/uL Berkshire% 8.3 % Abs [place]kshire 0.65 <0.87 k/uL Eosin% 1.7 % Abs Eosin 0.13 <0.46 k/uL Baso% 0.4 % Abs Baso 0.03 <0.11 k/uLCOMP METABOLIC PANELResult Value Ref Range Protein, Total 7.2 6.3 - 8.0 g/dL Albumin 4.1 3.9 - 4.9 g/dL Calcium 10.6 (H) 8.5 - 10.2 mg/dL Bilirubin, Total 0.4 0.2 - 1.3 mg/dL Alkaline Phosphatase 95 36 - 108 U/L AST 19 14 - 40 U/L Glucose 105 (H) 74 - 99 mg/dL BUN 12 9 - 24 mg/dL Creatinine 0.97 0.73 - 1.22 mg/dL Sodium 144 136 - 144 mmol/L Potassium 3.7 3.7 - 5.1 mmol/L Chloride 100 97 - 105 mmol/L CO2 33 (H) 22 - 30 mmol/L Anion Gap 11 9 - 18 mmol/L ALT 10 10 - 54 U/L eGFR- >60 eGFR-All Other Races >60 .LIPASE BLDResult Value Ref Range Lipase 30 16 - 61 U/LAMYLASE BLDResult Value Ref Range Amylase 48 30 - 104 U/L? CT ABD/PEL W IVCON (Final result) Result time: 11/23/17 12:28:36? Final result by Interface, Results In (11/23/17 12:28:36)? Impression:? IMPRESSION:1. ?There appears to be some thickening of the wall of the antral regionof the stomach. ?No evidence of fluid collections or inflammatory changesin the surrounding tissues2. ?Multiple subcentimeter lymph nodes near the celiac axis. ?This is anonspecific finding.We discussed the above findings. Repeat abdominal exam reveals minimalepigastric tenderness with no rebound. Amylase and lipase are normal.Electrolytes and LFTs obtained. Bicarbonate 33, glucose 105 calcium 10.6. Electro lites and LT is otherwise normal. CBC shows leukocyte count of7.8 with no anemia, thrombocytopenia or [facility] Because of the initial exam, not my subsequent exam, I did recommendadmission. We discussed all the above findings and the reason foradmission. The patient refuses this. He will utilize medication if Iprescribed him one and will follow-up as an outpatient. He will alsoreturn to the ED if worse in any way. Patient placed on Pepcid.Encouraged not to smoke, utilize ibuprofen or excessive alcohol.Encounter Diagnosis ICD-10-CM1. Epigastric abdominal pain R10.13PlanThe Patient was DISCHARGED: Counseled patient regarding lab results ANDradiology results AND suspected diagnosis AND need for follow-up. Dischargedhome with verbal and written instructions. They were instructed to returnas needed for persistent or worsening symptoms or any new concerns.Condition at time of disposition: improved and stableSIGNATURE: Florencia Eduadro, Hector Eduardo, DO11/23/17 1239 Normal [facility] Lipaseon 11-23-2017 Lipase 30 U/L Normal 16- [facility] Comment on above: Performed By: #### A MYL, CMP, LIPA, CBCDIF ####[facility] [address] [phone] Vital Signs Date Time Vital Sign Value Performing Clinician Facility 09-25-2024 12:27-0500 Body temperature 98.2 [degF] Masha Zayas MD Work Phone: [facility] 09-25-2024 12:27-0500 Diastolic blood pressure 76 mm[Hg] Masha Zayas MD Work Phone: [facility] 09-25-2024 12:27-0500 Heart rate 66 /min Masha Zayas MD Work Phone: [facility] 09-25-2024 12:27-0500 Respiratory rate 15 /min Masha Zayas MD Work Phone: [facility] 09-25-2024 12:27-0500 SaO2% (BldA) [Mass fraction] 96 % Masha Zayas MD Work Phone: [facility] 09-25-2024 12:27-0500 Systolic blood pressure 163 mm[Hg] Masha Zayas MD Work Phone: [facility] 09-25-2024 10:18-0500 Body height 179.1 cm Masha Zayas MD Work Phone: [facility] 09-25-2024 10:18-0500 Body mass index (BMI) [Ratio] 23.17 kg/m2 Masha Zayas MD Work Phone: [facility] 09-25-2024 10:18-0500 Body weight 74.3 kg Masha Zayas MD Work Phone: [facility] 08-28-2024 14:30-0500 Body temperature 97.7 [degF] Masha Zayas MD Work Phone: [facility] 08-28-2024 14:30-0500 Diastolic blood pressure 85 mm[Hg] Masha Zayas MD Work Phone: [facility] 08-28-2024 14:30-0500 Heart rate 56 /min Masha Zayas MD Work Phone: [facility] 08-28-2024 14:30-0500 Respiratory rate 16 /min Masha Zayas MD Work Phone: [facility] 08-28-2024 14:30-0500 SaO2% (BldA) [Mass fraction] 98 % Masha Zayas MD Work Phone: [facility] 08-28-2024 14:30-0500 Systolic blood pressure 174 mm[Hg] Masha Zayas MD Work Phone: [facility] 08-28-2024 12:36-0500 Body height 179.1 cm Masha Zayas MD Work Phone: [facility] 08-28-2024 12:36-0500 Body mass index (BMI) [Ratio] 22.45 kg/m2 Masha Zayas MD Work Phone: [facility] 08-28-2024 12:36-0500 Body weight 72 kg Masha Zayas MD Work Phone: [facility] Encounters Encounter Date Encounter Type Care Provider Facility Start: 04-19-2025 ambulatory Drew Magana Facility:[facility] Start: 10-05-2024 End: 10-05-2024 ambulatory [facility] Start: 09-26-2024 End: 09-26-2024 ambulatory [facility] Start: 09-25-2024 End: 09-25-2024 ambulatory [facility] Start: 09-25-2024 End: 09-25-2024 Subsequent hospital visit by physician Masha Zayas MD Work Phone: [facility] Comment on above: 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, right eye (Primary Dx) Start: 09-05-2024 End: 09-05-2024 ambulatory [facility] Start: 08-29-2024 End: 08-29-2024 ambulatory [facility] Start: 08-28-2024 End: 08-28-2024 ambulatory [facility] Start: 08-28-2024 End: 08-28-2024 Subsequent hospital visit by physician Masha Zayas MD Work Phone: [facility] OR Comment on above: 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, right eye (Primary Dx) Start: 07-30-2024 End: 07-30-2024 ambulatory [facility] Start: 11-23-2017 End: 11-23-2017 Emergency department patient visit [facility] Procedures Date Procedure Procedure Detail Performing Clinician Start: 08-28-2024 PULSE OXIMETRY, CONTINUOUS Tomi Thompson MD Work Phone: Plan of Treatment Date Care Activity Detail Author Start: 10-05-2024 End: 10-05-2024 Patient encounter procedure 10/05/2024 1:15 PM EST Office Visit [place] [address] [place] [phone] [place] [address] [employer] [place] [address] [facility][note 3] Start: 09-26-2024 End: 09-26-2024 Patient encounter procedure 09/26/2024 2:45 PM EST Office Visit [facility] Ophthalmology [address] [place] [phone] [place] [address] [employer] [place] [address] [facility] Start: 09-25-2024 End: 09-25-2024 Xcapsl ctrc rmvl insj io lens prosth w/o ecp Phacoemulsification Cataract with Insertion Intraocular Lens Combined form of age-related cataract, right eye 09/25/2024 11:25 AM EST [facility] Start: 09-05-2024 End: 09-05-2024 Patient encounter procedure 09/05/2024 2:00 PM EST Office Visit [facility] Ophthalmology [address] [place] [address] [place] [address] [address] Department [place] [address] [facility] Start: 08-29-2024 End: 08-29-2024 Patient encounter procedure 08/29/2024 2:30 PM EST Office Visit [facility] Ophthalmology [address] [place] [phone] [place] [address] [address] Department [place] [address] [facility] Start: 08-28-2024 End: 08-28-2024 Xcapsl ctrc rmvl insj io lens prosth cplx wo ecp Phacoemulsification Cataract with Insertion Intraocular Lens Combined form of age-related cataract, left eye 08/28/2024 1:34 PM EST [facility] Start: 06-10-2024 COVID-19 Vaccine ( season) COVID-19 Vaccine ( season) [facility] Start: 06-10-2024 COVID-19 Vaccine ( season) COVID-19 Vaccine ( season) [facility] Start: 06-10-2024 Influenza vaccination Influenza Vaccine (#1) [facility] Start: 02-15-2016 Zoster Vaccines (1 of 2) Zoster Vaccines (1 of 2) [facility] Start: 02-15-1988 DTaP/Tdap/Td Vaccines (1 - Tdap) DTaP/Tdap/Td Vaccines (1 - Tdap) [facility] Start: 1985 Hepatitis B Vaccines (1 of 3 - 19+ 3-dose series) Hepatitis B Vaccines (1 of 3 - 19+ 3-dose series) [facility] Start: 02-15-1984 Hepatitis C screening Hepatitis C Screening [facility] Start: 02-15-1972 Pneumococcal Vaccine: Pediatrics (0 to 5 Years) and At-Risk Patients (6 to 64 Years) (1 of 2 - PCV) Pneumococcal Vaccine: Pediatrics (0 to 5 Years) and At-Risk Patients (6 to 64 Years) (1 of 2 - PCV) [facility] Start: 1967 MMR Vaccines (1 of 1 - Standard series) MMR Vaccines (1 of 1 - Standard series) [facility] Start: 1966 HIV screening HIV Screening [facility] Start: 1966 Lipid panel Lipid Panel [facility] Start: 1966 Screening for malignant neoplasm of colon [facility] Start: 1966 Yearly Adult Physical Yearly Adult Physical [facility] End: 08-28-2024 Blood type and Indirect antibody screen panel - Blood Type And Screen Lab Timed As needed (Lab) until discontinued starting 08/28/2024 [facility] Work Phone: Comment on above: As needed (Lab) until discontinued start ing 08/28/2024 End: 09-25-2024 Blood type and Indirect antibody screen panel - Blood Type And Screen Lab Timed As needed (Lab) until discontinued starting 09/25/2024 [facility] Work Phone: Comment on above: As needed (Lab) until discontinued start ing 09/25/2024 Payers Date Payer Category Payer Self-pay 2023 Managed Care (Private) [employer] [facility] [id number] 2023 Unknown [id number] 1965 Unknown [id number] 1966 Unknown [id number] 1966 Unknown [id number] .[id number] 1966 Unknown [id number] .[id number] 1966 Unknown [id number] .[id number] 1966 Unknown [id number] .[id number] 1966 Unknown [id number] Unknown [id number] Social History Date Type Detail Facility Start: 08-24-2024 [facility] use [facility] Start: 08-24-2024 Tobacco use and exposure Smokeless tobacco non-user [facility] Work Phone: Start: 08-28-2024 End: 09-25-2024 Alcoholic beverage intake Lifetime non-drinker (finding) [facility] Work Phone: Start: 08-24-2024 End: 09-25-2024 History of Social function [facility] Work Phone: Start: 08-24-2024 End: 09-25-2024 Tobacco use panel [facility] Work Phone: Start: 08-24-2024 Tobacco Comment 10 cigarettes a day. Never had anesthesia. No family history of MH.No illnesses in the past 30 days.Does not get SOB with a flight of stairs.Does not use a cane, walker, or wheelchair.Is able to lie flat for 30 minutes. [facility] Work Phone: Start: 1965 Sex assigned at Not on file [facility] Work Phone: Start: 08-18-2024 End: 09-25-2024 Exposure to SARS-CoV-2 (event) Not sure [facility] Work Phone: Medical Equipment Procedure Code Equipment Code Equipment Origin al Text Equipment Identifier Dates Implant Record [id number]_[facility] Start: 08-28-2024 Comment on above: Description: DIBOO 2 2.0 TOMMIE AND TOMMIE 21.5 Diopter, Tecnis Eyhance 1-Piece Iol W/ Simplicity Delivery System, Biconvex, Uv-Blocking Hydrophobic Acrylic, Model Dib00 [id number] Start: 09-25-2024 Clinical Notes 08-28-2024 to 09-25-2024 Discharge InstructionsOp Note - Masha Zayas MD - 09/25/2024 11:36 AM ESTBrief Op Note - Gia Henry MD - 09/25/2024 11:36 AM Robbin Hernández MD - 09/25/2024 10:16 AM EST Note Date & Type Note Facility 09-25-2024 Hospital Discharge instructions Masha Zayas MD - 09/25/2024 12:20 PM EST Images from the original note were not included. Surgeon: Masha Zayas MD Patient name: Diego Alarcon Date of surgery: September 25, 2024 DROP INSTRUCTIONS: Prednisolone acetate 1% (pink or white cap) - One drop 4 times a day to operative eye Ofloxacin (gold cap) - One drop 4 times a day to operative eye Ketorolac (izquierdo cap) - One drop 4 times a day to operative eye When putting different drops in around the same administration time, please wait 1-2 minutes between drops Avoid sleeping on side of operative eye No heavy lifting over 10-15lbs and no bending over Do not get eye wet, no eye rubbing Wear sunglasses or glasses during the day and the shield when sleeping at night Please call immediately if you develop any redness, pain, decreased vision, flashes, or floaters During office hours (8:30a-4:30p): [phone] After office hours: [phone] Hospital gas station operator: [phone] Pager: [phone] Lezama documented in this encounter [facility] Work Phone: 09-25-2024 Miscellaneous Notes 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] Procedures Phacoemulsification Cataract with Insertion Intraocular Lens 62211 - RI XCAPSL CTRC RMVL INSJ IO LENS PROSTH W/O ECP Surgeons * Masha Zayas - Primary Resident/Fellow/Other Fourth Grade Teacher: Surgeons and Role: * No surgeons found with a matching role * Staff: Poolroom Table Attendant: Nayeli Jay Person: Tanya Anesthesia Staff: DRY CELL BATTERY ASSEMBLER: Anamaria Warner APRN-MONIKA Procedure Summary Anesthesia: Monitor Anesthesia Care ASA: I Estimated Blood Loss: 0 mL Intra-op Medications: Administrations occurring from 1130 to 1220 on 09/25/24: Medication Name Total Dose balanced salts (BSS) intraocular solution 515 mL povidone-iodine 5 % ophthalmic solution 3 Application tetracaine (PF) 0.5 % ophthalmic solution 3 drop EPINEPHrine HCl (PF) (Adrenalin) injection 0.3 mg EPINEPHrine HCl (PF) (Adrenalin) 1 mL, lidocaine PF (Xylocaine) 10 mg/mL (1 %) 1 mL in balanced salts (BSS) 3 mL syringe 1 mL chondroitin sulf-sod hyaluron (Duovisc) intraocular kit 1 mL chondroitin sulf-sod hyaluron (Viscoat) intraocular injection 0.5 mL NaCl 0.9 % bolus Cannot be calculated Anesthesia Record Intraprocedure I/O Totals Intake NaCl 0.9 % bolus 10.00 mL Total Intake 10 mL Specimen: No specimens collected Drains and/or Catheters: * None in log * Tourniquet Times: Implants: Implants Type Name Action Serial No. 21.5 DIOPTER, TECSURYA MICHELLECE 1-PIECE IOL W/ SIMPLICITY DELIVERY SYSTEM, BICONVEX, UV-BLOCKING HYDROPHOBIC ACRYLIC, MODEL DIB00 Implanted [id number] Findings: as below Indications: Diego Alarcon is an 59 y.o. 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 Procedure Details: Patient name: Diego Alarcon Date of : 1965 Date of surgery: September 25, 2024 Preoperative diagnosis: Combined cataract of the RIGHT eye Postoperative diagnosis: Combined cataract of the RIGHT eye Procedure: Phacoemulsification of cataract with insertion of intraocular lens, RIGHT eye Surgeon: Masha Zayas MD Resident: Gia Henry MD Anesthesia: MAC Complications: None Lens Inserted: Tommie & Tommie DIB00 with a power of +21.50 D. Serial #: [id number]. Exp date: 05/30/2027. Procedure description: After the risks, benefits, and alternatives of the planned procedure were discussed with the patient, informed consent was obtained at the preoperative evaluation. On the day of surgery, there were no updates to the consent form and any patient questions were answered. The patient was correctly identified in the preoperative area and the RIGHT eye was marked as the operative eye. Dilating drops were instilled into the RIGHT eye in the preoperative area. The patient was then taken back to the operating room and placed under sedation. The patient was prepped and draped in the standard, sterile ophthalmic fashion in preparation for intraocular surgery. A lid speculum was placed into the RIGHT palpebral fissure and the operating microscope was brought into position. A paracentesis was made in superotemporal cornea at the limbus with a 1.0mm side port blade using a cotton tipped applicator to provide countertraction. Intracameral epishugarcaine was injected into the anterior chamber followed by Viscoat viscoelastic. Using 0.12 forceps to stabilize the globe, a 2.4mm keratome blade was used to create a limbal clear-corneal incision inferotemporally. A bent-needle cystotome and Utrata forceps were used to create a continuous curvilinear capsulorrhexis. Balanced salt saline solution on a blunt-tipped cannula was used to achieve hydrodissection. A phacoemulsification device and a [place] spatula were used to remove the nucleus using a wlfece-sdz-nkfvymd technique. Residual cortical material was removed with the irrigation and aspiration handpiece. Provisc viscoelastic was then injected into the eye to reform the anterior chamber and to open the capsular bag. The posterior capsule was inspected and found to be clean and intact. The intraocular lens, Tommie & Tommie DIB00 with a power of +21.50 diopters was injected into the capsular bag. A lens positioner was used to center the lens and ensure good position within the bag. The remaining viscoelastic was removed using irrigation and aspiration. Balanced salt saline solution on a blunt-tipped cannula was then used to hydrate the corneal stroma adjacent to the main wound and paracentesis site as well as to reform the anterior chamber. The wound was checked and found to be watertight with normal intraocular pressure verified using digital palpation. At the conclusion of the case, a well-centered intraocular lens with a good red reflex was observed. Tetracaine, betadine, and BSS were instilled into the RIGHT eye. The lid speculum and drapes were removed. A clear plastic shield was then taped over the eye. The patient was taken to the recovery room in stable condition, having tolerated the procedure well. There were no complications. Complications: None; patient tolerated the procedure well. Disposition: PACU - hemodynamically stable. Condition: stable Additional Details: none Attending Attestation: I performed the procedure with resident assistance. 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] Procedures Phacoemulsification Cataract with Insertion Intraocular Lens 73315 - RI XCAPSL CTRC RMVL INSJ IO LENS PROSTH W/O ECP Surgeons * Masha Zayas - Primary Resident/Fellow/Other Fourth Grade Teacher: Surgeons and Role: * No surgeons found with a matching role * Staff: Poolroom Table Attendant: Nayeli Jay Person: Tanya Anesthesia Staff: DRY CELL BATTERY ASSEMBLER: Anamaria Warner APRN-DRY CELL BATTERY ASSEMBLER Procedure Summary Anesthesia: Monitor Anesthesia Care ASA: I Estimated Blood Loss: <5 mL Intra-op Medications: Administrations occurring from 1130 to 1220 on 09/25/24: Medication Name Total Dose balanced salts (BSS) intraocular solution 515 mL povidone-iodine 5 % ophthalmic solution 3 Application tetracaine (PF) 0.5 % ophthalmic solution 3 drop EPINEPHrine HCl (PF) (Adrenalin) injection 0.3 mg EPINEPHrine HCl (PF) (Adrenalin) 1 mL, lidocaine PF (Xylocaine) 10 mg/mL (1 %) 1 mL in balanced salts (BSS) 3 mL syringe 1 mL chondroitin sulf-sod hyaluron (Duovisc) intraocular kit 1 mL chondroitin sulf-sod hyaluron (Viscoat) intraocular injection 0.5 mL NaCl 0.9 % bolus Cannot be calculated Anesthesia Record Intraprocedure I/O Totals Intake NaCl 0.9 % bolus 10.00 mL Total Intake 10 mL Specimen: No specimens collected Findings: Cataract, right eye Phacoemulsification/intraocular lens (IOL) insertion, right eye Complications: None; patient tolerated the procedure well. Disposition: PACU - hemodynamically stable. Condition: stable Specimens Collected: No specimens collected Attending Attestation: Masha Zayas Cosigned by Masha Zayas MD at 09/25/2024 12:20 PM EST Associated attestation - Chana, Masha Mckeon MD - 09/25/2024 12:20 PM EST Attending Attestation Statement for Evaluation and Management Services: I was physically present and/or personally examined the patient during the evaluation of this patient. I reviewed the documentation and confirm the resident's note. documented in this encounter [facility] Work Phone: 09-25-2024 Note Formatting of this n ote is different from the original. 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] Procedures Phacoemulsification Cataract with Insertion Intraocular Lens 74157 - RI XCAPSL CTRC RMVL INSJ IO LENS PROSTH W/O ECP Surgeons * Masha Zayas - Primary Resident/Fellow/Other Fourth Grade Teacher: Surgeons and Role: * No surgeons found with a matching role * Staff: Poolroom Table Attendant: Nayeli Jay Person: Tanya Anesthesia Staff: MONIKA: Anamaria Warner APRN-MONIKA Procedure Summary Anesthesia: Monitor Anesthesia Care ASA: I Estimated Blood Loss: 0 mL Intra-op Medications: Administrations occurring from 1130 to 1220 on 09/25/24: Medication Name Total Dose balanced salts (BSS) intraocular solution 515 mL povidone-iodine 5 % ophthalmic solution 3 Application tetracaine (PF) 0.5 % ophthalmic solution 3 drop EPINEPHrine HCl (PF) (Adrenalin) injection 0.3 mg EPINEPHrine HCl (PF) (Adrenalin) 1 mL, lidocaine PF (Xylocaine) 10 mg/mL (1 %) 1 mL in balanced salts (BSS) 3 mL syringe 1 mL chondroitin sulf-sod hyaluron (Duovisc) intraocular kit 1 mL chondroitin sulf-sod hyaluron (Viscoat) intraocular injection 0.5 mL NaCl 0.9 % bolus Cannot be calculated Anesthesia Record Intraprocedure I/O Totals Intake NaCl 0.9 % bolus 10.00 mL Total Intake 10 mL Specimen: No specimens collected Drains and/or Catheters: * None in log * Tourniquet Times: Implants: Implants Type Name Action Serial No. 21.5 DIOPTER, TECNIS EYHANCE 1-PIECE IOL W/ SIMPLICITY DELIVERY SYSTEM, BICONVEX, UV-BLOCKING HYDROPHOBIC ACRYLIC, MODEL DIB00 Implanted [id number] Findings: as below Indications: Diego Alarcon is an 59 y.o. 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 Procedure Details: Patient name: Diego Alarcon Date of : 1965 Date of surgery: September 25, 2024 Preoperative diagnosis: Combined cataract of the RIGHT eye Postoperative diagnosis: Combined cataract of the RIGHT eye Procedure: Phacoemulsification of cataract with insertion of intraocular lens, RIGHT eye Surgeon: Masha Zayas MD Resident: Gia Henry MD Anesthesia: MAC Complications: None Lens Inserted: Tommie & Tommie DIB00 with a power of +21.50 D. Serial #: [id number]. Exp date: 05/30/2027. Procedure description: After the risks, benefits, and alternatives of the planned procedure were discussed with the patient, informed consent was obtained at the preoperative evaluation. On the day of surgery, there were no updates to the consent form and any patient questions were answered. The patient was correctly identified in the preoperative area and the RIGHT eye was marked as the operative eye. Dilating drops were instilled into the RIGHT eye in the preoperative area. The patient was then taken back to the operating room and placed under sedation. The patient was prepped and draped in the standard, sterile ophthalmic fashion in preparation for intraocular surgery. A lid speculum was placed into the RIGHT palpebral fissure and the operating microscope was brought into position. A paracentesis was made in superotemporal cornea at the limbus with a 1.0mm side port blade using a cotton tipped applicator to provide countertraction. Intracameral epishugarcaine was injected into the anterior chamber followed by Viscoat viscoelastic. Using 0.12 forceps to stabilize the globe, a 2.4mm keratome blade was used to create a limbal clear-corneal incision inferotemporally. A bent-needle cystotome and Utrata forceps were used to create a continuous curvilinear capsulorrhexis. Balanced salt saline solution on a blunt-tipped cannula was used to achieve hydrodissection. A phacoemulsification device and a [place] spatula were used to remove the nucleus using a kealbf-jof-apxdsqu technique. Residual cortical material was removed with the irrigation and aspiration handpiece. Provisc viscoelastic was then injected into the eye to reform the anterior chamber and to open the capsular bag. The posterior capsule was inspected and found to be clean and intact. The intraocular lens, Tommie & Tommie DIB00 with a power of +21.50 diopters was injected into the capsular bag. A lens positioner was used to center the lens and ensure good position within the bag. The remaining viscoelastic was removed using irrigation and aspiration. Balanced salt saline solution on a blunt-tipped cannula was then used to hydrate the corneal stroma adjacent to the main wound and paracentesis site as well as to reform the anterior chamber. The wound was checked and found to be watertight with normal intraocular pressure verified using digital palpation. At the conclusion of the case, a well-centered intraocular lens with a good red reflex was observed. Tetracaine, betadine, and BSS were instilled into the RIGHT eye. The lid speculum and drapes were removed. A clear plastic shield was then taped over the eye. The patient was taken to the recovery room in stable condition, having tolerated the procedure well. There were no complications. Complications: None; patient tolerated the procedure well. Disposition: PACU - hemodynamically stable. Condition: stable Additional Details: none Attending Attestation: I performed the procedure with resident assistance. Masha Zayas [facility] Work Phone: 09-25-2024 Note Formatting of this n ote is different from the original. 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] Procedures Phacoemulsification Cataract with Insertion Intraocular Lens 30219 - RI XCAPSL CTRC RMVL INSJ IO LENS PROSTH W/O ECP Surgeons * Masha Zayas - Primary Resident/Fellow/Other Fourth Grade Teacher: Surgeons and Role: * No surgeons found with a matching role * Staff: Poolroom Table Attendant: Nayeli Jay Person: Tanya Anesthesia Staff: DRY CELL BATTERY ASSEMBLER: Anamaria Warner APRN-DRY CELL BATTERY ASSEMBLER Procedure Summary Anesthesia: Monitor Anesthesia Care ASA: I Estimated Blood Loss: <5 mL Intra-op Medications: Administrations occurring from 1130 to 1220 on 09/25/24: Medication Name Total Dose balanced salts (BSS) intraocular solution 515 mL povidone-iodine 5 % ophthalmic solution 3 Application tetracaine (PF) 0.5 % ophthalmic solution 3 drop EPINEPHrine HCl (PF) (Adrenalin) injection 0.3 mg EPINEPHrine HCl (PF) (Adrenalin) 1 mL, lidocaine PF (Xylocaine) 10 mg/mL (1 %) 1 mL in balanced salts (BSS) 3 mL syringe 1 mL chondroitin sulf-sod hyaluron (Duovisc) intraocular kit 1 mL chondroitin sulf-sod hyaluron (Viscoat) intraocular injection 0.5 mL NaCl 0.9 % bolus Cannot be calculated Anesthesia Record Intraprocedure I/O Totals Intake NaCl 0.9 % bolus 10.00 mL Total Intake 10 mL Specimen: No specimens collected Findings: Cataract, right eye Phacoemulsification/intraocular lens (IOL) insertion, right eye Complications: None; patient tolerated the procedure well. Disposition: PACU - hemodynamically stable. Condition: stable Specimens Collected: No specimens collected Attending Attestation: Masha Zayas Cosigned by Masha Zayas MD at 09/25/2024 12:20 PM EST Associated attestation - Masha Zayas MD - 09/25/2024 12:20 PM EST Attending Attestation Statement for Evaluation and Management Services: I was physically present and/or personally examined the patient during the evaluation of this patient. I reviewed the documentation and confirm the resident's note. [facility] Work Phone: 09-25-2024 History and physical note History Of Present Illness Diego Alarcon is a 59 y.o. male with POHx of pseudophakia OS, epiretinal membrane (ERM) OS, prior retinal detachment (RD) of left eye, presenting with blurred vision OD here for planned Cataract extraction with intraocular lens (IOL) implantation right eye Past Medical History Past Medical History: Diagnosis Date Cataract Gastric ulcer Retinal tear of left eye Surgical History Past Surgical History: Procedure Laterality Date CATARACT EXTRACTION W/ INTRAOCULAR LENS IMPLANT Right 08/28/2024 Dr. Lezama, Aim: -2.50sph NO PAST SURGERIES RETINAL LASER PROCEDURE Left Social History He reports that he has been smoking cigarettes. He has never used smokeless tobacco. He reports that he does not drink alcohol and does not use drugs. Family History No family history on file. Allergies Patient has no known allergies. Review of Systems All other systems reviewed and are negative. Physical Exam Constitutional: General: NAD, nontoxic appearing Cardiovascular: Well perfused, 2+ radial pulses b/l Pulmonary: No increased WOB Psychiatric: Appropriate affect Last Recorded Vitals There were no vitals taken for this visit. No current facility-administered medications on file prior to encounter. Current Outpatient Medications on File Prior to Encounter Medication Sig Dispense Refill ketorolac (Acular) 0.5 % ophthalmic solution 1 drop to surgical eye 4 times a day starting 1 day before surgery 5 mL 2 ofloxacin (Ocuflox) 0.3 % ophthalmic solution 1 drop to operative eye 4 times a day starting 1 day before surgery 5 mL 2 prednisoLONE acetate (Pred-Forte) 1 % ophthalmic suspension 1 drop to operative eye 4 times a day starting the day of surgery (after surgery is done) 5 mL 2 Assessment/Plan Assessment & Plan Combined form of age-related cataract, right eye Diego Alarcon is a 59 y.o. male with pseudophakia OS, epiretinal membrane (ERM) OS, prior retinal detachment (RD) of left eye, presenting with blurred vision OD here for planned Cataract extraction with intraocular lens (IOL) implantation right eye Proceed w plan as above Brittni Hernández MD Cosigned by Masha Zayas MD at 09/25/2024 11:25 AM EST Associated attestation - Masha Zayas MD - 09/25/2024 11:25 AM EST Attending Attestation Statement for Evaluation and Management Services: I was physically present and/or personally examined the patient during the evaluation of this patient. I reviewed the documentation and confirm the resident's note. [facility] Work Phone: 09-25-2024 History and physical note History Of Present Illness Diego Alarcon is a 59 y.o. male with POHx of pseudophakia OS, epiretinal membrane (ERM) OS, prior retinal detachment (RD) of left eye, presenting with blurred vision OD here for planned Cataract extraction with intraocular lens (IOL) implantation right eye Past Medical History Past Medical History: Diagnosis Date Cataract Gastric ulcer Retinal tear of left eye Surgical History Past Surgical History: Procedure Laterality Date CATARACT EXTRACTION W/ INTRAOCULAR LENS IMPLANT Right 08/28/2024 Dr. Lezama, Aim: -2.50sph NO PAST SURGERIES RETINAL LASER PROCEDURE Left Social History He reports that he has been smoking cigarettes. He has never used smokeless tobacco. He reports that he does not drink alcohol and does not use drugs. Family History No family history on file. Allergies Patient has no known allergies. Review of Systems All other systems reviewed and are negative. Physical Exam Constitutional: General: NAD, nontoxic appearing Cardiovascular: Well perfused, 2+ radial pulses b/l Pulmonary: No increased WOB Psychiatric: Appropriate affect Last Recorded Vitals There were no vitals taken for this visit. No current facility-administered medications on file prior to encounter. Current Outpatient Medications on File Prior to Encounter Medication Sig Dispense Refill ketorolac (Acular) 0.5 % ophthalmic solution 1 drop to surgical eye 4 times a day starting 1 day before surgery 5 mL 2 ofloxacin (Ocuflox) 0.3 % ophthalmic solution 1 drop to operative eye 4 times a day starting 1 day before surgery 5 mL 2 prednisoLONE acetate (Pred-Forte) 1 % ophthalmic suspension 1 drop to operative eye 4 times a day starting the day of surgery (after surgery is done) 5 mL 2 Assessment/Plan Assessment & Plan Combined form of age-related cataract, right eye Diego Alarcon is a 59 y.o. male with pseudophakia OS, epiretinal membrane (ERM) OS, prior retinal detachment (RD) of left eye, presenting with blurred vision OD here for planned Cataract extraction with intraocular lens (IOL) implantation right eye Proceed w plan as above Brittni Hernández MD Cosigned by Masha Zayas MD at 09/25/2024 11:25 AM EST Associated attestation - Masha Zayas MD - 09/25/2024 11:25 AM EST Attending Attestation Statement for Evaluation and Management Services: I was physically present and/or personally examined the patient during the evaluation of this patient. I reviewed the documentation and confirm the resident's note. documented in this encounter [facility] Work Phone: 08-28-2024 Hospital Discharge instructions Masha Zayas MD - 08/28/2024 1:48 PM EST Images from the original note were not included. Surgeon: Masha Zayas MD Patient name: Diego Alarcon Date of surgery: August 28, 2024 DROP INSTRUCTIONS: Prednisolone acetate 1% (pink or white cap) - One drop 4 times a day to operative eye Ofloxacin (gold cap) - One drop 4 times a day to operative eye Ketorolac (izquierdo cap) - One drop 4 times a day to operative eye When putting different drops in around the same administration time, please wait 1-2 minutes between drops Avoid sleeping on side of operative eye No heavy lifting over 10-15lbs and no bending over Do not get eye wet, no eye rubbing Wear sunglasses or glasses during the day and the shield when sleeping at night Please call immediately if you develop any redness, pain, decreased vision, flashes, or floaters During office hours (8:30a-4:30p): [phone] After office hours: [phone] Hospital gas station operator: [phone] Pager: [phone] 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, right eye documented in this encounter [facility] Work Phone: Evaluation note* Diagnosis Combined form of age-related cataract, right eye- Primary Combined form of age-related cataract, right eye Cataract present documented in this encounter [facility] Work Phone: Reason for visit Narrative* Auth/Cert Specialty Diagnoses / Procedures Referred By Albert tsai Referred To Contact Diagnoses Combined form of age-related cataract, left eye Combined form of age-related cataract, left eye [H25.812] Procedures RI XCAPSL CTRC RMVL INSJ IO LENS PROSTH CPLX WO ECP Phacoemulsification Cataract [place]ion [place] [id number] [facility] [place] [address] Phone: tel: fax: [facility] OR [address] [place] [address] Phone: tel: fax: Referral ID Status Reason Start Date Expiration Date Visits Re quested Visits Authorized [id number] 1 1 [facility] Work Phone: Reason for visit Narrative* Auth/Cert Specialty Diagnoses / Procedures Referred By Albert t Referred To Contact Diagnoses Combined form of age-related cataract, 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, right eye [H25.811] Procedures RI XCAPSL CTRC RMVL INSJ IO LENS PROSTH W/O ECP Phacoemulsification Cataract with [place]ion [place] [id number] [facility] [place] [address] Phone: tel: fax: [facility] OR [address] [place] [address] Phone: tel: fax: Referral ID Status Reason Start Date Expiration Date Visits Re quested Visits Authorized [id number] 1 1 [facility] Work Phone: Summary Purpose Family History No Family History Records FoundNo Family History Records FoundNo Family History Records FoundNo Family History Records FoundNo Family History Records FoundNo Family History Records Found Advance Directives No Advanced Directives Records Found Date Activated Date Inactivated Comments 08/28/2024 12:31 PM Question Answer Comments Plan of Care: Code Status Discussion Not Compl eted Decision Maker: Provider Rationale: Patient condition does not warra nt discussion Additional Source Comments (unrecognized sect ion and content) No Status Records FoundNo Status Records FoundNo Status Records FoundNo Status Records FoundNo Status Records FoundNo Status Records Found INFORMATION SOURCE (unrecogn ized section and content) DATE CREATED AUTHOR 04/13/2018 [facility] DATE CREATED AUTHOR AUTHOR'S ORGANIZ ATION 09/17/2020 [facility] DATE CREATED AUTHOR AUTHOR'S ORGANIZ ATION 09/19/2020 [facility] DATE CREATED AUTHOR AUTHOR'S ORGANIZ ATION 09/28/2024 [facility] DATE CREATED AUTHOR AUTHOR'S ORGANIZ ATION 11/30/2024 [facility] DATE CREATED AUTHOR AUTHOR'S ORGANIZ ATION 04/03/2025 [facility] Scheduled Active and Recently Administ ered Medications (unrecognized section and content) Medication Order 08/26/2024 08/27/2024 08/28/2024 cyclopentolate (Cyclogyl) 1 % ophthalmic solution 1 drop (COMPLETED) 1 drop, Left Eye, Every 5 min, First dose on Tue08/28/24 at 1300, For 3 doses, Preprocedure, 1 drop to operative eye every 5-10 minutes for 3 doses, Indications: cycloplegia, mydriasis 1238 (Given - Provid er: Krystal Nicholson RN)1243 (Given - Provider: Krystal Nicholson RN)1248 (Given - Provider: Krystal Nicholson RN) phenylephrine (Charbel-Synephrine) 10 % ophthalmic solution 1 drop (COMPLETED) 1 drop, Left Eye, Every 5 min, First dose on Tue08/28/24 at 1300, For 3 doses, Preprocedure, 1 drop to operative eye every 5-10 minutes for 3 doses, Indications: mydriasis 1238 (Given - Provid er: Krystal Nicholson RN)1243 (Given - Provider: Krystal Nicholson RN)1248 (Given - Provider: Krystal Nicholson RN) tetracaine (PF) 0.5 % ophthalmic solution 1 drop (COMPLETED) 1 drop, Left Eye, Once, On Tue08/28/24 at 1300, For 1 dose, Preprocedure 1237 (Given - Provid er: Krystal Nicholson RN) PRN Medication Order 08/26/2024 08/27/2024 08/28/2024 balanced salts (BSS) intraocular solution (CANCELED) As needed, Starting on Tue08/28/24 at 1355, Intraprocedure 1355 (Given - Provid er: Masha Zayas MD) balanced salts (BSS) intraocular solution (CANCELED) As needed, Starting on Tue08/28/24 at 1355, Intraprocedure 1355 (Given - Provid er: Masha Zayas MD - Comment: EPINEPHRINE 0.3ML) chondroitin sulf-sod hyaluron (Duovisc) intraocular kit (CANCELED) As needed, Starting on Tue08/28/24 at 1357, Intraprocedure 1357 (Given - Provid er: Masha Zayas MD) droperidol (Inapsine) injection 0.625 mg 0.625 mg, intravenous, Once as needed, nausea/vomiting, second line, Starting on Tue08/28/24 at 1414, For 1 dose, Recovery (only), Monitor QTc while on therapy (2 lead monitoring) fentaNYL PF (Sublimaze) injection 12.5 mcg 12.5 mcg, intravenous, Every 5 min PRN, pain mild (1-3), first line, Starting on Tue08/28/24 at 1414, Recovery (only), Max total of 200 micrograms regardless of dose., If ordered PRN for pain, nurse is permitted to administer this medication for higher pain scores based on patient preference? Yes fentaNYL PF (Sublimaze) injection 25 mcg 25 mcg, intravenous, Every 5 min PRN, pain moderate (4-6), first line, Starting on Tue08/28/24 at 1414, Recovery (only), Max total of 200 micrograms regardless of dose., If ordered PRN for pain, nurse is permitted to administer this medication for higher pain scores based on patient preference? Yes fentaNYL PF (Sublimaze) injection 50 mcg 50 mcg, intravenous, Every 5 min PRN, pain severe (7-10), first line, Starting on Tue08/28/24 at 1414, Recovery (only), Max total of 200 micrograms regardless of dose., If ordered PRN for pain, nurse is permitted to administer this medication for higher pain scores based on patient preference? Yes lidocaine PF (Xylocaine) 10 mg/mL (1 %) injection (CANCELED) As needed, Starting on Tue08/28/24 at 1356, Intraprocedure 1356 (Given - Provid er: Masha Zayas MD - Comment: BSS=3ML ADD 1%LIDOCAINE 1ML DISCARD 1ML ADD EPINEPHRINE 1ML) ondansetron (Zofran) injection 4 mg 4 mg, intravenous, Once as needed, nausea/vomiting, first line, Starting on Tue08/28/24 at 1414, For 1 dose, Recovery (only), When administering via IV Push, administer over 3-5 minutes. oxygen (O2) therapy inhalation, Continuous PRN - O2/gases, other, Starting on Tue08/28/24 at 1414, Recovery (only), Device: Nasal Cannula, Rate in liters per minute: Other, Custom Value: 1-6 LPM, Keep O2 Sat Above: 92% povidone-iodine 5 % ophthalmic solution (CANCELED) As needed, Starting on Tue08/28/24 at 1357, Intraprocedure 1357 (Given - Provid er: Masha Zayas MD) sterile water irrigation solution (CANCELED) As needed, Starting on Tue08/28/24 at 1358, Intraprocedure 1358 (Given - Provid er: Masha Zayas MD) tetracaine (PF) 0.5 % ophthalmic solution (CANCELED) As needed, Starting on Tue08/28/24 at 1358, Intraprocedure 1358 (Given - Provid er: Masha Zayas MD) Scheduled Medication Order 09/23/2024 09/24/2024 09/25/2024 cyclopentolate (Cyclogyl) 1 % ophthalmic solution 1 drop (COMPLETED) 1 drop, Right Eye, Every 5 min, First dose on Tue09/25/24 at 1030, For 3 doses, Preprocedure, 1 drop to operative eye every 5-10 minutes for 3 doses, Indications: cycloplegia, mydriasis 1015 (Given - Provid er: Felicia Anguiano RN)1020 (Given - Provider: Felicia Anguiano RN)1025 (Given - Provider: Felicia Anguiano RN) phenylephrine (Charbel-Synephrine) 10 % ophthalmic solution 1 drop (COMPLETED) 1 drop, Right Eye, Every 5 min, First dose on Tue09/25/24 at 1030, For 3 doses, Preprocedure, 1 drop to operative eye every 5-10 minutes for 3 doses, Indications: mydriasis 1015 (Given - Provid er: Felicia Anguiano RN)1020 (Given - Provider: Felicia Anguiano RN)1025 (Given - Provider: Felicia Anguiano RN) tetracaine (PF) 0.5 % ophthalmic solution 1 drop (COMPLETED) 1 drop, Right Eye, Once, On Tue09/25/24 at 1030, For 1 dose, Preprocedure 1015 (Given - Provid er: Felicia Anguiano RN) PRN Medication Order 09/23/2024 09/24/2024 09/25/2024 balanced salts (BSS) intraocular solution (CANCELED) As needed, Starting on Tue09/25/24 at 1135, Intraprocedure 1135 (Given - Provid er: Masha Zayas MD - Comment: TOPICALLY FOR IRRIGATION THROUGHOUT CASE)1139 (Given - Provider: Masha Zayas MD - Comment: WITH 0.3 MG EPINEPHRINE PF 1MG/ML MIXED IN BAG) chondroitin sulf-sod hyaluron (Duovisc) intraocular kit (CANCELED) As needed, Starting on Tue09/25/24 at 1137, Intraprocedure 1137 (Given - Provid er: Masha Zayas MD) chondroitin sulf-sod hyaluron (Viscoat) intraocular injection (CANCELED) As needed, Starting on Tue09/25/24 at 1155, Intraprocedure 1155 (Given - Provid er: Masha Zayas MD) EPINEPHrine HCl (PF) (Adrenalin) 1 mL, lidocaine PF (Xylocaine) 10 mg/mL (1 %) 1 mL in balanced salts (BSS) 3 mL syringe (CANCELED) As needed, Starting on Tue09/25/24 at 1136, Intraprocedure 1136 (Given - Provid er: Gia Henry MD - Comment: EPI SHUGARCAINE, (3ML BSS MIXED WITH 1ML 1% LIDOCAINE PF, THEN DISCARDED 1ML AND ADDED 1ML EPINEPHRINE 1MG/ML )) EPINEPHrine HCl (PF) (Adrenalin) injection (CANCELED) As needed, Starting on Tue09/25/24 at 1139, Intraprocedure 1139 (Given - Provid er: Masha Zayas MD - Comment: MIXED IN BSS 5000 ML BAG) povidone-iodine 5 % ophthalmic solution (CANCELED) As needed, Starting on Tue09/25/24 at 1130, Intraprocedure 1130 (Given - Provid er: Gia Henry MD)1134 (Given - Provider: Masha Zayas MD)1212 (Given - Provider: Masha Zayas MD) tetracaine (PF) 0.5 % ophthalmic solution (CANCELED) As needed, Starting on Tue09/25/24 at 1128, Intraprocedure 1128 (Given - Provid er: Gia Henry MD)1134 (Given - Provider: Masha Zayas MD)1202 (Given - Provider: Masha Zayas MD)1212 (Given - Provider: Masha Zayas MD) FOR RECORDS PERTAINING TO PATIENTS WHO ARE OR HAVE BEEN ENROLLED IN A CHEMICAL DEPENDENCY/SUBSTANCEABUSE PROGRAM, SOME INFORMATION MAY BE OMITTED. This clinical summary was aggregated from multiple sources. Caution should be exercised in using it in the provision of clinical care. This summary normalizes information from multiple sources, and as a consequence, information in this document may materially change the coding, format and clinical context of patient data. In addition, data may be omitted in some cases. CLINICAL DECISIONS SHOULD BE BASED ON THE PRIMARY CLINICAL RECORDS. [facility]. provides no warranty or guarantee of the accuracy or completeness of information in this document.
== END | disposition home or self-care (01) ==
PROVIDERS: PCP Family Medicine; Referring Provider Family Medicine; Visit Provider Family Medicine
DX: Z87.891 Personal history of nicotine dependence (principal)
CPT/HCPCS: 71271

== ENCOUNTER → 2025-05-31 | Outpatient (CLI) | payer OTHER, SELFPAY ==
[2025-05-31 12:56] LABS: Anion Gap 13 (5-15); BUN 7 mg/dL (4-19); BUN/Creat Ratio 8.0 RATIO (10-20); Calcium,Total 8.9 mg/dL (7.6-11.0); Carbon Dioxide 24.2 mmol/L (21.0-32.0); Chloride 99 mmol/L (98-108); Cholesterol 108 mg/dL (<=200); Glucose 93 mg/dL (70-99); Low Density Lipoprotein Calc. 48 mg/dL; PSA,Total - Annual Screen 1.21 ng/mL (0.02-4.00); Potassium 4.1 mmol/L (3.3-5.1); Triglycerides 84 mg/dL; Very Low Density Lipoprotein 17 mg/dL (5-40); cholesterol:hdl ratio screen 2.49
== END | disposition home or self-care (01) ==
LOC: MTLAB 09:56
PROVIDERS: PCP Family Medicine; Referring Provider Family Medicine; Visit Provider Family Medicine
DX: Z00.00 Encounter for general adult medical examination without abnormal findings (principal); Z12.5 Encounter for screening for malignant neoplasm of prostate
CPT/HCPCS: 36415; 80048; 80061; 84153; G0103